=== PATIENT | female | born 2005 | race Caucasian/White ===

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

== ENCOUNTER 2025-03-23 14:32 | Inpatient (IN) | payer BC, SELFPAY ==
--- OUTSIDE RECORDS SUMMARY | 2025-03-23 13:40 | XMS_ITS | Encounter Summary ---
Author Organization [facility] Address [address] [place] [address] Care Team Providers Care Tobacco Buyer Name Role Phone Nelia Albarran Primary Care Provider Reason for Visit * Reason Comments Follow Up Medication & mental health check Encounter Details Date Type Department Care Team ([facility] st Contact Info) Description 03/23/2025 1:40 PM CDT Office Visit [facility] [place] [address] [place] [address] Crenshawnovember, FISH BONING MACHINE FEEDER [address] [place] [phone] Suicidal ideation (Primary Dx) Social History Tobacco Use Types Packs/Day Years Used Date Smoking Tobacco: Never Passive Smoke Exposure: Never Smokeless Tobacco: Never Tobacco Cessation:Counseling Given: No Alcohol Use Standard Drinks/Week Comments No 0 (1 standard drink = 0.6 oz pur e alcohol) Comments Unknown Sex and Gender Information Value Date Recorded Sex Assigned at Not on file Legal Sex Female 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 Gender Identity Not on file Sexual Orientation Not on file documented as of this encounter Last Filed Vital Signs Vital Sign Reading Time Taken Comments Blood Pressure 122/70 03/23/2025 1:27 PM CDT Pulse 77 03/23/2025 1:27 PM CDT Temperature 36.5 C (97.7 F) 03/23/2025 1:27 PM CDT Respiratory Rate 18 03/23/2025 1:27 PM CDT Oxygen Saturation 97% 03/23/2025 1:27 PM CDT Inhaled Oxygen Concentration - - Weight 103.9 kg (229 lb) 03/23/2025 1:27 PM CDT Height 160 cm (5' 3 ) 03/23/2025 1:27 PM CDT Body Mass Index 40.57 03/23/2025 1:27 PM CDT documented in this encounter Progress Notes * Flower, November, FISH BONING MACHINE FEEDER - 03/23/2025 1:29 PM CDT Depression Screen Positive: PHQ-2 score >= 3 or PHQ-9 score >= 9 PHQ-2 Total: 6 (03/23/2025 1:29 PM) DEPRESSION PLAN OF CARE Her depression screen was positive. Her antidepressant medication was reviewed Chief Complaint Patient presents with Follow Up Medication & mental health check History of Present Illness The patient is a 19-year-old female who presents to the clinic for follow-up. She reports that her current medication, Prozac, has not been effective in managing her symptoms. She expresses feelings of hopelessness and a lack of motivation to seek help. She admits to having persistent thoughts of self-harm, which have been ongoing for approximately 1.5 months. She has contemplated two different methods of suicide. 10 point review of systems is otherwise negative except as mentioned above. Past Medical History: Diagnosis Date Asthma HTN (hypertension) Current Outpatient Medications Medication Instructions albuterol sulfate 90 mcg/Actuation inhaler 2 puffs every 6 hours as needed for SOB or wheezing. Use2 puffs before PE or exercise FLUoxetine (PROZAC) 20 mg, Oral, DAILY fluticasone propionate (FLONASE) 50 mcg/spray Chambers, Suspension nasal inhaler 2 Sprays, Both Nostrils, DAILY ipratropium-albuteroL (DUONEB) 0.5 mg-3 mg(2.5 mg base)/3 mL Solution for Nebulization 3 mL, Inhalation, EVERY 6 HOURS PRN RESPIRATORY nebulizer Length of need 99 months Nebulizer with compressor, Kit: Disposable Nebulizer Kit, 2 per month, filters , areosol mask: No. Name of Medication Duoneb Past Surgical History: Procedure Laterality Date MT COLONOSCOPY FLX DX W/COLLJ SPEC WHEN PFRMD N/A 10/02/2019 COLONOSCOPY performed by Josh Vieyra MD at [facility] MT UPPER GI ENDOSCOPY,TUMOR ABLATN N/A 10/02/2019 ESOPHAGOGASTRODUODENOSCOPY PEDIATRIC performed by Josh Vieyra MD at [facility] END[facility] PT DENIES RELEVANT SURGICAL HISTORY Past social, family, and medical history reviewed. BP 122/70 Pulse 77 Temp 97.7 ??F (36.5 ??C) Resp 18 Ht 5' 3 (1.6 m) Wt 103.9 kg (229 lb) SpO2 97% BMI 40.57 kg/m?? Physical Exam Physical Exam Constitutional: Appearance: Normal appearance. HENT: Head: Normocephalic. Right Ear: External ear normal. Left Ear: External ear normal. Eyes: Conjunctiva/sclera: Conjunctivae normal. Cardiovascular: Rate and Rhythm: Normal rate and regular rhythm. Pulses: Normal pulses. Heart sounds: Normal heart sounds. Pulmonary: Effort: Pulmonary effort is normal. Breath sounds: Normal breath sounds. Abdominal: General: Bowel sounds are normal. Palpations: Abdomen is soft. Musculoskeletal: General: Normal range of motion. Cervical back: Neck supple. Skin: General: Skin is warm. Neurological: General: No focal deficit present. Mental Status: She is alert. Psychiatric: Mood and Affect: Mood is depressed. Affect is tearful. Behavior: Behavior normal. Assessment & Plan 1. Suicidal ideation. - Persistent thoughts of self-harm reported, with consideration of using a knife or pills. - Symptoms have worsened over the last month and a half, with daily struggles. - Inpatient psychiatric stay recommended due to severity and presence of an active plan. - EMS transport to ER arranged for further evaluation and potential admission to neuropsych unit [facility]. AGUSTIN Helton The author of this note, patient (or authorized exhibit display representative), and all other persons present consent to the audio recording of this visit for charting documentation purposes. This note was automatically generated, edited by a Quality Hoist Cylinder Loader, and finalized by RENALDO Helton. documented in this encounter Plan of Treatment Not on file documented as of this encounter Visit Diagnoses Diagnosis Suicidal ideation- Primary documented in this encounter Additional Health Concerns Assessment Noted Time PHQ-9 Depression Total Score: 6 03/23/20 25 1:29 PM CDT documented as of this encounter Care Teams Tobacco Buyer Relationship Specialty Start Date End Date Nelia Albarran DO [address] [phone] PCP - General Family Practice 05/06/19 documented as of this encounter
[2025-03-23 14:37] VITALS: BP 135/88; PULSE 69; RESP 16; TEMP 36.7; O2SAT 100; BMI 38.9
--- NOTE | 2025-03-23 14:37 | ECG_ITS ---
[facility] Test Date: 2025-03-23 Pat Name: Hansa Steen Department: Room: Gender: Female Brusher: : 2005 Requested By: Sandeep Go Order Number: [id number] Beth MD: Zackary Lobato M.D. Measurements Intervals [place] Rate: 53 P: 45 DE: 155 QRS: 37 QRSD: 76 T: 30 QT: 396 QTc: 375 Interpretive Statements SINUS BRADYCARDIA WITH SINUS ARRHYTHMIA No previous ECG available for comparison Electronically Signed On 03-26-2025 10:27:55 CDT by Zackary Lobato M.D. [email or web address]
--- NOTE | 2025-03-23 14:39 | W.ED.PSYCHS ---
HPI - Psych General: Chief Complaint: Psychiatric Symptoms Stated Complaint: SI Time Seen by Provider: 03/23/25 14:32 Source: patient and EMS Mode of arrival: EMS Limitations: no limitations History of Present Illness: 19-year-old female presents for suicidal ideation states she has chronic depression but is gotten much more depressed over the last weeks she states she is actively suicidal with a plan of overdosing on pills no previous psych admission she is on Prozac. Associated symptoms: Reports depression and suicidal ideation Related Data Home Medications ?Medication ?Instructions ?Recorded ?Confirmed fluoxetine 20 mg capsule 20 mg PO DAILY 03/23/25 03/23/25 Allergies Allergy/AdvReac Type Severity Reaction Status Date / Time No Known Allergies Allergy Verified 09/14/19 21:08 Review of Systems Const: Denies: fever(s), chills, body aches or change in appetite ENMT: Denies: throat pain or dental pain Card: Denies: chest pain Resp: Denies: dyspnea GI: Denies: abdominal pain, nausea, vomiting or diarrhea : Denies: dysuria Musc: Denies: neck pain or back pain Skin/Breast: Denies: rash Neuro: Denies: headache(s) Psych: Reports: depression and suicidal ideation Physical Exam Const: COMMON NORMALS: no acute distress, patient oriented x3 and healthy appearing HENMT: COMMON NORMALS: normocephalic and atraumatic HEAD & SCALP: normocephalic and atraumatic Eye: COMMON NORMALS: conjunctivae normal CONJUNCTIVA: Yes conjunctivae normal Neck/C-Spine: COMMON NORMALS: full ROM and supple Chest: COMMONS NORMALS: normal inspection of the chest Resp: COMMON NORMALS: normal respiratory effort, No retractions, No use of accessory muscles and clear to auscultation bilaterally AUSCULTATION: clear to auscultation bilaterally Cardio: COMMON NORMALS: regular rate, regular rhythm and No murmurs present (Cardio) RATE: regular rate RHYTHM: regular rhythm Extremity: COMMON NORMALS: normal to inspection and full ROM Neuro: COMMON NORMALS: patient oriented x3, moves all extremities and no focal motor deficits Psych: COMMON NORMALS: mental status grossly normal, Normal thought process present and cooperative MOOD & AFFECT: Yes depressed mood THOUGHT PROCESS: Normal thought process present THOUGHT CONTENT: Yes Suicidality present Skin: COMMON NORMALS: no rashes or lesions noted and no wounds GENERAL SKIN EXAM: no rashes or lesions noted Course Vital Signs: Vital signs: Vital Signs Temperature 98.1 F 03/23/25 14:37 Pulse Rate 54 L 03/23/25 16:56 Respiratory Rate 16 03/23/25 14:37 Blood Pressure 132/76 03/23/25 16:56 Pulse Oximetry 99 03/23/25 16:56 Oxygen Delivery Me thod Room Air 03/23/25 16:56 MDM - Psych Medical Decision Making Patient presents for suicidal ideations she has been medically cleared spoke to psychiatrist will admit Medical Records I reviewed the patient's medical records. Lab Data I reviewed the patient's lab results. 03/23/25 14:46 03/23/25 14:46 Laboratory Results WBC 5.21 10^3/uL (4.5-13.0) 03/23/25 14:46 RBC 4.42 10^6/uL (3.85-5.65) 03/23/25 14:46 Hgb 13.80 g/dL (12.4-14.8) 03/23/25 14:46 Hct 40.4 % (36-47) 03/23/25 14:46 MCV 91.4 fl (85-98) 03/23/25 14:46 MCH 31.2 pg (27-33) 03/23/25 14:46 MCHC 34.2 g/dL (30-55) 03/23/25 14:46 RDW 11.9 % (12.1-15.1) L 03/23/25 14:46 Plt Count 239 10^3/cmm (157-399) 03/23/25 14:46 MPV 10.8 fL (7.4-10.4) H 03/23/25 14:46 Neut % (Auto) 63.9 % 03/23/25 14:46 Lymph % (Auto) 26.7 % 03/23/25 14:46 [place] % (Auto) 6.9 % 03/23/25 14:46 Eos % (Auto) 1.5 % 03/23/25 14:46 Baso % (Auto) 0.6 % 03/23/25 14:46 Neut # (Auto) 3.33 10^3/uL (1.8-8.0) 03/23/25 14:46 Lymph # (Auto) 1.4 10^3/uL (1.5-6.5) L 03/23/25 14:46 [place]oun # (Auto) 0.4 10^3/uL (0.2-0.9) 03/23/25 14:46 Eos # (Auto) 0.1 10^3/uL (0.0-0.8) 03/23/25 14:46 Baso # (Auto) 0.0 10^3/uL (0.0-0.1) 03/23/25 14:46 Nucleated RBC % (auto) 0 % 03/23/25 14:46 Nucleated RBCs # 0.0 /100WBC 03/23/25 14:46 Sodium 138 mmol/L (136-145) 03/23/25 14:46 Potassium 4.1 mmol/L (3.5-5.1) 03/23/25 14:46 Chloride 103 mmol/L (98-107) 03/23/25 14:46 Carbon Dioxide 25 mmol/L (22-29) 03/23/25 14:46 Anion Gap 14.1 (5-19) 03/23/25 14:46 BUN 9 mg/dL (6-20) 03/23/25 14:46 Creatinine 0.7 mg/dL (0.5-0.9) 03/23/25 14:46 GFR Calculation 107.8 mL/min (90-130) 03/23/25 14:46 Glucose 103 mg/dL (65-115) 03/23/25 14:46 Calculated Osmolality 285 mOsm/kg (285-295) 03/23/25 14:46 Calcium 9.3 mg/dL (8.5-10.5) 03/23/25 14:46 Total Bilirubin 0.6 mg/dL (0.15-1.2) 03/23/25 14:46 AST 10 U/L (0-32) 03/23/25 14:46 ALT 11 U/L (0-33) 03/23/25 14:46 Alkaline Phosphatase 60 U/L (35-105) 03/23/25 14:46 Total Protein 7.2 g/dL (6.6-8.7) 03/23/25 14:46 Albumin 4.4 g/dL (3.5-5.2) 03/23/25 14:46 Globulin 2.8 g/dL (1.3-4.6) 03/23/25 14:46 HCG, Qual Negative (Negative) 03/23/25 16:06 Salicylates < 0.3 mg/dL (3-10) L 03/23/25 14:46 Urine Opiates Screen Negative ng/mL (Negative) 03/23/25 16:06 Acetaminophen < 5.0 ug/mL (10-30) L 03/23/25 14:46 Ur Barbiturates Screen Negative ng/mL (Negative) 03/23/25 16:06 Ur Phencyclidine Scrn Negative ng/mL (Negative) 03/23/25 16:06 Ur Amphetamines Screen Negative ng/mL (Negative) 03/23/25 16:06 U Benzodiazepines Scrn Negative ng/mL (Negative) 03/23/25 16:06 Urine Cocaine Screen Negative ng/mL (Negative) 03/23/25 16:06 U Marijuana (THC) Screen Positive ng/mL (Negative) H 03/23/25 16:06 Ethyl Alcohol < 10 mg/dL (0-10) 03/23/25 14:46 Influenza A (PCR) Negative (Negative) 03/23/25 15:18 Influenza Type B (PCR) Negative (Negative) 03/23/25 15:18 RSV (PCR) Negative (Negative) 03/23/25 15:18 SARS-CoV-2 (PCR) Negative (Negative) 03/23/25 15:18 No radiology studies performed this visit EKG Data EKG 1: I personally reviewed and interpreted this EKG as follows: EKG interpretation date: 03/23/25 EKG interpretation time: 15:15 Interpretation: sinus norma hr [address] elevation qrs 76 qtc 380 Discharge Plan Discharge Patient Disposition: Admitted As Inpatient Clinical Impression: Suicidal ideation Condition: Stable Coding Level of Care Code ED Medical Insurance Coding Specialist for Dinora Car
--- OUTSIDE RECORDS SUMMARY | 2025-03-23 14:39 | XMS_ITS | Encounter Summary ---
Author Organization [facility] Address [address] [place] [address] Care Team Providers Care Public Health Program Manager Name Role Phone Nelia Albarran DO Primary Care Provider [phone] Encounter Details Date Type Department Care Team (Late st Contact Info) Description 09/08/2019 Ancillary Orders [facility] Medicine [place] [address] [place] [phone] Hailey Castro, [facility] [address] [facility] [address] [place] [phone] Social History Tobacco Use Types Packs/Day Years Used Date Smoking Tobacco: Never Smokeless Tobacco: Never Alcohol Use Standard Drinks/Week Comments No 0 (1 standard drink = 0.6 oz pur e alcohol) Comments No Sex and Gender Information Value Date Recorded Sex Assigned at Not on file 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 Gender Identity Not on file Sexual Orientation Not on file documented as of this encounter Plan of Treatment Not on file documented as of this encounter Visit Diagnoses Not on filedocumented in this encounter Additional Health Concerns Infection Onset Date Last Indicated Resolved Time R/O COVID-19 02/11/2020 02/11/2020 02/13/2020 2:15 AM CDT R/O COVID-19 03/22/2020 03/22/2020 03/24/2020 2:15 AM CDT R/O COVID-19 12/07/2020 12/07/2020 12/14/2020 8:08 PM CDT documented as of this encounter Care Teams Public Health Program Manager Relationship Specialty Start Date End Date Nelia Albarran DO [address] [place] [phone] PCP - General Family Practice 05/06/19 documented as of this encounter
--- OUTSIDE RECORDS SUMMARY | 2025-03-23 14:39 | XMS_ITS | Encounter Summary ---
Author Organization [facility] Address [address] [place] [address] Care Team Providers Care Department Operations Manager Name Role Phone Nelia Albarran DO Primary Care Provider [phone]- [phone] Reason for Referral * Radiology Services (Routine) - Closed Specialty Diagnoses / Procedures Referred By Conttruman t Referred To Contact Radiology Diagnoses RUQ pain Abdominal cramping Morbid obesity with body mass index of 40.0-49.9 (CMS/HCC) Acute pain of right shoulder Procedures NM HEPATOBILIARY SCAN NM HEPATOBIL W PHARM INTERV Hailey Castro FNP Phone: tel: fax: [facility] Nuclear Medicine [address] [place] [phone] Phone: tel: fax: Referral ID Status Reason Start Date Expiration Date V isits Requested Visits Authorized [id number] Closed [facility] TO SCHEDULE (SGF) 08/11/2019 09/25/2019 1 1 CAR PAINTER/SANDBLASTER Encounter Details Date Type Department Care Team (Late st Contact Info) Description 09/08/2019 Ancillary Orders [facility] Family [facility] [address] [place] [phone] Hailey Castro FNP [address] [phone] RUQ pain; Abdominal cramping; Morbid obesity with body mass index of 40.0-49.9 (CMS/HCC); Acute pain of right shoulder Social History Tobacco Use Types Packs/Day Years Used Date Smoking Tobacco: Never Smokeless Tobacco: Never Alcohol Use Standard Drinks/Week Comments No 0 (1 standard drink = 0.6 oz pur e alcohol) Comments No Sex and Gender Information Value Date Recorded Sex Assigned at Not on file Legal Sex Female 3:53 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 Normal exam without evidence of acute or chronic cholecystitis. This laboratory has been accredited by the Intersocietal Commission for the Accreditation of Nuclear Medicine Laboratories (ICANL). [id number] Narrative 09/08/2019 9:58 PM RAIL CAR PAINTER/SANDBLASTER Hepatobiliary Imaging With Ensure Plus Stimulation and Quantitative Analysis: Date/Time of Exam: 09/08/2019 3:18 PM Reason For Exam: Abd pain, RUQ Diagnosis: RUQ pain; Abdominal cramping; Morbid obesity with body mass index of 40.0-49.9; Acute pain of right shoulder BMI: Not available. Radiopharmaceutical: Tc-99m (technetium-99m) mebrofenin Dose: 3.5 mCi IV Additional Medications: Ensure Plus Dose: 8 ounces Following the intravenous administration of the above radiopharmaceutical, the liver, hepatobiliary tree, and abdomen were sequentially imaged through 60 minutes post tracer administration. Ensure Plus, 8 ounces, was then administered orally and images were obtained for an additional 60 minutes. The overall quality of this study appears good. COMPARISON:None FINDINGS: The initial tracer extraction from the blood pool by the liver appears prompt. The liver is overall normal in size with uniform tracer distribution throughout both lobes in the anterior projection. Visualization of the biliary tree, common bile duct activity and bowel activity by 30 minutes. Review of dynamic imaging demonstrates no acute findings. Tracer washout from the liver appears normal. At this time, the patient was administered 8 ounces of Ensure Plus. The gallbladder was then visualized for an additional 60 minutes. Quantitatively, 95% (normal > 33%) of the contents of the gallbladder was maximally ejected with the dose of Ensure Plus. Procedure Note Slick Cm MD - 09/08/2019 Hepatobiliary Imaging With Ensure Plus Stimulation and Quantitative Analysis: Date/Time of Exam: 09/08/2019 3:18 PM Reason For Exam: Abd pain, RUQ Diagnosis: RUQ pain; Abdominal cramping; Morbid obesity with body mass index of 40.0-49.9; Acute pain of right shoulder BMI: Not available. Radiopharmaceutical: Tc-99m (technetium-99m) mebrofenin Dose: 3.5 mCi IV Additional Medications: Ensure Plus Dose: 8 ounces Following the intravenous administration of the above radiopharmaceutical, the liver, hepatobiliary tree, and abdomen were sequentially imaged through 60 minutes post tracer administration. Ensure Plus, 8 ounces, was then administered orally and images were obtained for an additional 60 minutes. The overall quality of this study appears good. COMPARISON:None FINDINGS: The initial tracer extraction from the blood pool by the liver appears prompt. The liver is overall normal in size with uniform tracer distribution throughout both lobes in the anterior projection. Visualization of the biliary tree, common bile duct activity and bowel activity by 30 minutes. Review of dynamic imaging demonstrates no acute findings. Tracer washout from the liver appears normal. At this time, the patient was administered 8 ounces of Ensure Plus. The gallbladder was then visualized for an additional 60 minutes. Quantitatively, 95% (normal > 33%) of the contents of the gallbladder was maximally ejected with the dose of Ensure Plus. IMPRESSION: 1. Normal exam without evidence of acute or chronic cholecystitis. This laboratory has been accredited by the Intersocietal Commission for the Accreditation of Nuclear Medicine Laboratories (ICANL). [id number] Hailey Castro [facility] NM ORDERABLES Final Re sult documented in this encounter Visit Diagnoses Diagnosis RUQ pain Abdominal pain, right upper quadrant Abdominal cramping Abdominal pain, unspecified site Morbid obesity with body mass index of 40.0-49.9 (CMS/HCC) Acute pain of right shoulder RUQ pain Abdominal pain, right upper quadrant Abdominal cramping Abdominal pain, unspecified site Morbid obesity with body mass index of 40.0-49.9 (CMS/HCC) Acute pain of right shoulder documented in this encounter Additional Health Concerns Infection Onset Date Last Indicated Resolved Time R/O COVID-19 02/11/2020 02/11/2020 02/13/2020 2:15 AM CDT R/O COVID-19 03/22/2020 03/22/2020 03/24/2020 2:15 AM CDT R/O COVID-19 12/07/2020 12/07/2020 12/14/2020 8:08 PM CDT documented as of this encounter Care Teams Department Operations Manager Relationship Specialty Start Date End Date Nelia Albarran DO [address] [place] [phone] PCP - General Family Practice 05/06/19 documented as of this encounter
--- OUTSIDE RECORDS SUMMARY | 2025-03-23 14:39 | XMS_ITS | Clinical Summary ---
Author Organization [facility] Address [address] [place] [address] Care Team Providers Care Section Leader Name Role Phone Nelia Albarran Primary Care Provider Allergies No known active allergies Medications ipratropium-albu teroL (DUONEB) 0.5 mg-3 mg(2.5 mg base)/3 mL Solution for NebulizationIndi cations:COVID-19 virus detected Take 3 mL by inhalation every 6 hours as needed for Shortness of Breath. 75 mL 1 1 Active Additional Information Patient not taking.Reported on 03/23/2025 nebulizerIndicat ions:COVID-19 virus detected Length of need 99 months Nebulizer with compressor, Kit: Disposable Nebulizer Kit, 2 per month, filters , areosol mask: No. Name of Medication Duoneb 1 Each 1 Active Additional Information Patient not taking.Reported on 02/24/2025 albuterol sulfate 90 mcg/Actuation inhalerIndicatio ns:Mild intermittent asthma without complication 2 puffs every 6 hours as needed for SOB or wheezing. Use 2 puffs before PE or exercise 6.7 Gram 4 2 Active Additional Information Patient not taking.Reported on 03/23/2025 fluticasone propionate (FLONASE) 50 mcg/spray [place], Suspension nasal inhalerIndicatio ns:Nasal congestion Administer 2 Sprays in each nostril daily. 16 Gram 2 Active Additional Information Patient not taking.Reported on 03/23/2025 FLUoxetine (PROzac) 20 mg capsuleIndicatio ns:Obsessive-com pulsive disorder, unspecified type Take 1 Capsule (20 mg) by mouth daily. 30 Capsule 2 Active Active Problems Problem Noted Date Diagnosed Date Mild intermittent asthma without complication Encounters Date Type Department Care Team Description 03/23/2025 1:40 PM CDT Office Visit [facility] [address] [place] [address] November, CATALYST OPERATOR GASOLINE Suicidal ideation (Primary Dx) 03/12/2025 External Device Data STL ABSTRACTION Provider, Abstract 03/11/2025 External Device Data STL ABSTRACTION Provider, Abstract 03/11/2025 External Device Data STL ABSTRACTION Provider, Abstract 03/03/2025 External Device Data STL ABSTRACTION Provider, Abstract 03/03/2025 External Device Data STL ABSTRACTION Provider, Abstract 03/03/2025 External Device Data STL ABSTRACTION Provider, Abstract 03/01/2025 Results Follow-Up [facility] [address] [place] [address] November, CATALYST OPERATOR GASOLINE CBC WITH DIFFERENTIAL, COMPREHENSIVE METABOLIC PANEL, LIPID PANEL, TSH 02/24/2025 12:00 PM CDT Office Visit [facility] [address] [place] [address] November, CATALYST OPERATOR GASOLINE Obsessive-compulsive disorder, unspecified type (Primary Dx); Binge eating disorder, mild; Morbid obesity with body mass index of 40.0-49.9 ([facility]/HCC) from Last 3 Months Immunizations Immunization Administration Dates Next Due (MENQUADFI)(2 YRS UP) MENING OCOCCAL POLYSACCHARIDE VACCINE A,C,Y,W-135, TT CONJUGATE (PF) 10 MCG/0.5 ML IM SOLUTION 04/14/2022 Family History Medical History Relation Name Comments Healthy Brother No Known Problems Father Cancer Maternal Grandfather Diabetes Maternal Grandfather Hypertension Maternal Grandfather Cancer Maternal Grandmother Diabetes Maternal Grandmother Hypertension Maternal Grandmother Hypertension Mother Cancer Paternal Grandfather Diabetes Paternal Grandfather Hypertension Paternal Grandfather Cancer Paternal Grandmother Diabetes Paternal Grandmother Hypertension Paternal Grandmother Healthy Sister Relation Name Status Comments Brother Alive Father Alive Maternal Grandfather Alive Maternal Grandmother Alive Mother Alive Paternal Grandfather Alive Paternal Grandmother Alive Sister Alive Social History Tobacco Use Types Packs/Day Years Used Date Smoking Tobacco: Never Passive Smoke Exposure: Never Smokeless Tobacco: Never Tobacco Cessation:Counseling Given: No Alcohol Use Standard Drinks/Week Comments No 0 (1 standard drink = 0.6 oz pur e alcohol) Comments Unknown Sex and Gender Information Value Date Recorded Sex Assigned at Not on file 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 Gender Identity Not on file Sexual Orientation Not on file Last Filed Vital Signs Vital Sign Reading [...] Mass Index 40.57 03/23/2025 1:27 PM CDT Plan of Treatment Health Maintenance Due Date Last Done Comments CHLAMYDIA SCREENING (ANNUAL) 11-24 YEARS 2016 DTAP/TDAP/TD VACCINES (5 - Tdap) 2016 07/05/2006, 2005, 2005, Additional history exists HPV VACCINES (1 - 3-dose series) 2020 Preventative Visit- Commercial 08/27/2024 04/14/2022 INFLUENZA VACCINE (#1) 2025 HEPATITIS B VACCINES Completed 2005, 2005, 2005 Procedures Procedure Name Priority Date/Time Associated Diagnosis Comments TSH Routine 02/24/2025 1:22 PM CDT Morbid obesity with body mass index of 40.0-49.9 (CMS/HCC) LIPID PANEL Routine 02/24/2025 1:22 PM CDT Morbid obesity with body mass index of 40.0-49.9 (CMS/HCC) COMPREHENSIVE METABOLIC PANEL Routine 02/24/2025 1:22 PM CDT Morbid obesity with body mass index of 40.0-49.9 (CMS/HCC) CBC WITH DIFFERENTIAL Routine 02/24/2025 1:22 PM CDT Morbid obesity with body mass index of 40.0-49.9 (CMS/HCC) from Last 3 Months Results * CBC WITH DIFFERENTIAL (02/24/2025 1:22 PM CDT) Pathologist [facility] WBC 5.3 3.8 - 10.8 Thousand/u L [facility] RBC 4.41 3.80 - 5.10 Million/uL [facility] HEMOGLOBIN 13.7 11.7 - 15.5 g/dL [facility] HEMATOCRIT 41.8 35.0 - 45.0 % [facility] MCV 94.8 80.0 - 100.0 fL [facility] MCH 31.1 27.0 - 33.0 pg [facility] MCHC 32.8 32.0 - 36.0 g/dL [facility] Comment: For adults, a slight decrease in the calculated MCHC value (in the range of 30 to 32 g/dL) is most likely not clinically significant; however, it should be interpreted with caution in correlation with other red cell parameters and the patient's clinical condition. RDW 11.3 11.0 - 15.0 % [facility] PLATELETS 248 140 - 400 Thousand/u L [facility] MPV 11.7 7.5 - 12.5 fL [facility] NEUTROPHIL ABSOLUTE 3,487 1,500 - 7,800 cells/uL [facility] LYMPHOCYTE ABSOLUTE 1,389 850 - 3,900 cells/uL [facility] MONOCYTE ABSOLUTE 302 200 - 950 cells/uL [facility] EOSINOPHIL ABSOLUTE 90 15 - 500 cells/uL [facility] BASOPHILS ABSOLUTE 32 0 - 200 cells/uL [facility] NEUTROPHIL 65.8 % [facility] LYMPHOCYTES 26.2 % [facility] MONOCYTE 5.7 % [facility] EOSINOPHILS 1.7 % [facility] BASOPHILS 0.6 % [facility] Comment: Test Performed at: [facility] [address] [place] [address] Eliazar Marie MD Blood 02/24/2025 1:22 PM CDT 02/24/2025 1:22 PM CDT November [facility] ORDERABLES Final Resu lt Performing Organization Address City/[facility] [address]/[facility] Co de Phone Number [facility] [phone] [facility] [address] [place] [phone] * TSH (02/24/2025 1:22 PM CDT) Pathologist [facility] TSH 1.74 mIU/L [facility] Comment: Reference Range 1-19 Years 0.50-4.30 Ranges First trimester 0.26-2.66 Second trimester 0.55-2.73 Third trimester 0.43-2.91 Test Performed at: [facility] [address] [place] [address] Eliazar Marie MD Blood 02/24/2025 1:22 PM CDT 02/24/2025 1:22 PM CDT November [facility] CHEMISTRY ORDERABLES Final Resul t Performing Organization Address [facility] [address]/[facility] Co de Phone Number [facility] [phone] [facility] [address] [place] [address] * (ABNORMAL) LIPID PANEL (02/24/2025 1:22 PM CDT) CHOLESTEROL 196(H) <170 mg/dL [facility] HDL 55 >45 mg/dL [facility] TRIGLYCERIDE 66 <90 mg/dL [facility] LDL CALCULATED 125(H) <110 mg/dL (calc) [facility] Comment: LDL-C is now calculated using the Guanako-Salcedo calculation, which is a validated novel method providing better accuracy than the Friedewald equation in the estimation of LDL-C. Guanako SS et al. PILAR. 2013;310(19): 2961-0374 (http://education.[employer]/faq/XCJ863) CHOL/HDL RATIO 3.6 <5.0 (calc) [facility] NON-HDL CHOLESTEROL 141(H) <120 mg/dL (calc) [facility] Comment: For patients with diabetes plus 1 major ASCVD risk factor, treating to a non-HDL-C goal of <100 mg/dL (LDL-C of <70 mg/dL) is considered a therapeutic option. Test Performed at: [facility] [address] [facility] [place] [address] Eliazar Marie MD Blood 02/24/2025 1:22 PM CDT 02/24/2025 1:22 PM CDT November CATALYST OPERATOR GASOLINE CHEMISTRY ORDERABLES Final Resul t [facility] [phone] [facility] [address] [facility] [place] [address] * COMPREHENSIVE METABOLIC PANEL (02/24/2025 1:22 PM CDT) GLUCOSE 87 65 - 99 mg/dL [facility] Comment: Fasting reference interval BUN 10 7 - 20 mg/dL [facility] CREATININE 0.81 0.50 - 0.96 mg/dL [facility] GFR 107 > OR = 60 mL/min/1. 73m2 [facility] BUN/CREAT RATIO SEE NOTE: 6 - 22 (calc) [facility] Comment: Not Reported: BUN and Creatinine are within reference range. SODIUM 136 135 - 146 mmol/L [facility] POTASSIUM 4.2 3.8 - 5.1 mmol/L [facility] CHLORIDE 104 98 - 110 mmol/L [facility] CO2 25 20 - 32 mmol/L [facility] CALCIUM 9.0 8.9 - 10.4 mg/dL [facility] TOTAL PROTEIN 7.5 6.3 - 8.2 g/dL [facility] ALBUMIN 4.9 3.6 - 5.1 g/dL [facility] GLOBULIN 2.6 2.0 - 3.8 g/dL (calc) [facility] ALBUMIN/GLOBULIN RATIO 1.9 1.0 - 2.5 (calc) [facility] BILIRUBIN TOTAL 0.7 0.2 - 1.1 mg/dL [facility] Comment: Results slightly decreased due to hemolysis. ALKALINE PHOSPHATASE 46 36 - 128 U/L [facility] AST 13 12 - 32 U/L [facility] ALT 11 5 - 32 U/L [facility] Comment: Test Performed at: [facility] [address] [place] [address] Eliazar Marie MD Blood 02/24/2025 1:22 PM CDT 02/24/2025 1:22 PM CDT November CATALYST OPERATOR GASOLINE CHEMISTRY ORDERABLES Final Resul t [facility] [phone] [facility] [address] [place] [address] from Last 3 Months Insurance [facility] PREFERRED [facility] BLUE PREFERRED [facility] MEDICAID Care Teams Section Leader Relationship Specialty Start Date End Date Nelia Albarran DO [address] [place] [address] PCP - General Family Practice 05/06/19
--- OUTSIDE RECORDS SUMMARY | 2025-03-23 14:39 | XMS_ITS | Clinical Summary ---
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 Use 2 puffs before PE or exercise 6.7 Gram 4 1 Active pantoprazole (Protonix) 20 mg Tablet, Delayed Release (E.C.)Indications:G astroesophageal reflux disease without esophagitis Take 1 Tablet (20 mg) by mouth daily. 30 Tablet 1 1 Active ondansetron (Zofran ODT) 4 mg Tablet, Rapid DissolveIndications :Viral gastroenteritis Take 1 Tablet (4 mg) by mouth every 8 hours as needed for Nausea/Emesi s. Dissolve tablet on top of tongue, then swallow with saliva. 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 Gender Identity Not on file Sexual Orientation Not on file Last Filed Vital Signs Vital Sign Reading Time Taken Comments Blood Pressure 128/82 12/07/2020 3:47 PM CDT Pulse 119 12/07/2020 3:47 PM CDT Temperature 37.1 C (98.8 F) 12/07/2020 3:47 PM CDT Respiratory Rate 17 09/21/2020 1:50 PM CREDIT ANALYSIS MANAGER Oxygen Saturation 99% 12/07/2020 3:47 PM CDT Inhaled Oxygen Concentration - - Weight 133.8 kg (295 lb) 12/07/2020 3:47 PM CDT Height 165.1 cm (5' 5 ) 12/07/2020 3:47 PM CDT Body Mass Index 49.09 12/07/2020 3:47 PM CDT Body Mass Index Percentile 99.99% 12/07/2020 3:4 7 PM CDT Growth Chart: CDC (Girls, 2- 20 Years) Plan of Treatment Health Maintenance Due Date Last Done Comments CHLAMYDIA SCREENING (ANNUAL) 11-24 YEARS 2016 HPV VACCINES (1 - 3-dose series) 2020 DTAP/TDAP/TD VACCINES (1 - Tdap) 2024 HEPATITIS B VACCINES (1 of 3 - 19+ 3-dose series) 03/28 Preventative Visit- Commercial 08/27/2024 04/14/2022 INFLUENZA VACCINE (#1) 2025 Insurance BLUE PREFERRED [facility] MEDICAID Care Teams Large Sheetfed Press Operator Relationship Specialty Start Date End Date Nelia Albarran DO [address] [place] [address] PCP - General Family Practice 05/06/19
[2025-03-23 14:57] LABS: Hematocrit 40.4 % (36-47); Hemoglobin 13.80 g/dL (12.4-14.8); Mean Corpuscular HGB Conc 34.2 g/dL (30-55); Mean Corpuscular Hemoglobin 31.2 pg (27-33); Mean Corpuscular Volume 91.4 fl (85-98); Nucleated Red Blood Cells % 0 %; Platelet Count 239 10^3/cmm (157-399); Red Blood Count 4.42 10^6/uL (3.85-5.65); White Blood Count 5.21 10^3/uL (4.5-13.0)
[2025-03-23 15:15] LABS: Alanine Aminotransferase 11 U/L (0-33); Albumin Level 4.4 g/dL (3.5-5.2); Alkaline Phosphatase 60 U/L (35-105); Anion Gap 14.1 (5-19); Aspartate Amino Transferase 10 U/L (0-32); Blood Urea Nitrogen 9 mg/dL (6-20); Calcium 9.3 mg/dL (8.5-10.5); Carbon Dioxide 25 mmol/L (22-29); Chloride 103 mmol/L (98-107); Creatinine Clr Calc Pharmacy 145.6144; Globulin 2.8 g/dL (1.3-4.6); Glucose 103 mg/dL (65-115); Osmolality Calculated 285 mOsm/kg (285-295); Potassium 4.1 mmol/L (3.5-5.1); Sodium 138 mmol/L (136-145); Total Protein 7.2 g/dL (6.6-8.7)
[2025-03-23 15:18] LABS: Acetaminophen < 5.0 ug/mL (10-30); Alcohol Level < 10 mg/dL (0-10); Salicylate < 0.3 mg/dL (3-10)
[2025-03-23 16:00] LABS: Respiratory Syncytial Virus Ce NEGATIVE (Negative); SARS-CoV-2 PCR NEGATIVE (Negative)
--- NOTE | 2025-03-23 16:00 | PC.NURSE ---
96 hr rights reviewed with pt @[id number] with assistance of [facility] truant officer Gold Welsh. All education reviewed with pt at this time. Pt verbalized understanding to hold parameters. Pt copy of rights was left @bedside. Pt provided water, and declined wanting a snack. No further needs.
[2025-03-23 16:22] LABS: PCP Screen Urine Negative (Negative)
[2025-03-23 16:47] LABS: HCG Qualitative Urine. Negative (Negative)
[2025-03-23 16:56] VITALS: BP 132/76; PULSE 54; O2SAT 99
[2025-03-23 18:48] VITALS: BP 134/67; PULSE 54; O2SAT 99
[2025-03-23 19:00] VITALS: BP 134/90; PULSE 61; RESP 18; TEMP 37.1; O2SAT 90
[2025-03-23 20:08] VITALS: BP 134/90; PULSE 61; RESP 18; TEMP 37.1; O2SAT 90
[2025-03-24 06:00] VITALS: BP 129/72; PULSE 64; RESP 19; TEMP 37.1; O2SAT 98
--- NOTE | 2025-03-24 13:23 | W.PM.NPUH&PS ---
Providers/Chief Complaint Admitting Physician: Josué Jaquez MD Primary Care Provider: [facility] Chief Complaint: SI HPI NPU History of Present Illness Hansa Steen is a 19 year old female with no prior history of inpatient psychiatric hospitalization who presented to the emergency department with complaints about having suicidal ideation over the past few weeks with a plan to overdose on medications. Patient was admitted to the neuropsychiatric unit for further evaluation and treatment. She denies any drug or alcohol use. She reports that she has had previous episodes of depression. She reports that over the past 1 month she has been feeling more hopeless. She reports a decline in energy and reports having difficulties falling asleep and not feeling rested when awakening. She endorses anhedonia. She reports that she frequently worries a lot and has difficulties with concentration. She reports a recent loss of appetite. She had endorsed fleeting suicidal thoughts but no active plan until the last week. She states that she had been started on Prozac 20 mg daily by her primary care physician but began to feel more hopeless that the medication was not helping her with her mood. The patient denies any history of uli. She denies any clear history of psychosis although she reports at times she hears her name being called. The patient reports that she has frequent intrusive thoughts about . He describes having recurring thoughts as well about feeling unclean and states that she spends an excessive amount of time washing her hands in a very particular manner. She reports spending excessive time in the bathroom often washing her hand. She also reports engaging in rituals that involve her needing to count 5 or 6 [address] and states that she will not step on a crack. She reports that she has fears of something bad happening to her if she does not engage in these rituals in such a particular way. She reports having problems with spending excessive amounts of time engaged in these rituals for the past 2 years. The patient reports that she often needs to wash her hands exactly 5 times and states that if her rhythm is interrupted by another she will begin to wash her hands all over. The patient reports that she does have a strict adherence to engaging in these rituals and reports that it often is is distracting to others as she reports that she takes long breaks while working at [employer] and reports that her management is somewhat tired of her behavior. She denies any drug or alcohol use. She denies any history of binge eating or purging. She reports having problems with anxiety in specific places often feeling like she is being judged in certain places. She reports avoidance of these places at times out of fear of being judged. Patient had reported that she has had nausea from the Prozac and reports often feeling fatigued. Inpatient psychiatric history: None Outpatient psychiatric history: None, she reports having been treated for depression recently by her primary care physician. She has no prior history of psychotherapy. Substance abuse history: None reported although she had reported occasional marijuana use and was positive for marijuana on admission. Legal history: None Medical history: None Surgical history: None Allergies: Dairy products Medications: Prozac 20 mg daily Family psychiatric history: Patient's father had been diagnosed with obsessive-compulsive disorder and depression. Social history: Patient was born in [place] and raised by her biological mother. Her parents were when the patient was young. She has 1 older sister and 1 younger sister and 2 half brothers from her father side of the family. She had denied any history of sexual physical or emotional abuse. She reports having a relatively happy childhood. She reported no problems with learning growing up and graduated from [employer] school. She is currently working full-time at [employer] while living with a roommate of nearly a year. She has not been and has no children. Meds NPU Home Medications ?Medication ?Instructions ?Recorded ?Confirmed ?Last Taken ?Type fluoxetine 20 mg capsule 20 mg PO DAILY 03/23/25 03/23/25 Unknown History Allergies Allergy/AdvReac Type Severity Reaction Status Date / Time No Known Allergies Allergy Verified 09/14/19 21:08 Mental Status Exam MSE Comments: Patient is casually dressed overweight white female who was pleasant and cooperative on interview. Her gait was within normal limits. Her hygiene was fair. There was no evidence of any abnormal involuntary motor movements, tics, or tremors appreciated. Her speech was normal in regards to rate, rhythm, and prosody. Her mood was described as depressed. Her affect was constricted and mood-congruent. Her thought process was linear, logical, and goal-directed. Her thought content revealed suicidal ideation with a plan to overdose on her medications. She denied any homicidal ideation. She had endorsed having recurring obsessive thoughts of feeling that her hands were dirty. She did not engage in any active compulsions during the interview. There was no evidence of delusional thinking. She did not appear to be responding to internal stimuli. Her attention span was fair. Her insight was partial. Her judgment was poor. Her impulse control appeared poor. Her recent and remote memory were grossly intact. Vitals/I&O/Wt Last Vital Signs Temp 98.7 F 03/24/25 06:00 Pulse 64 03/24/25 06:00 Resp 19 H 03/24/25 06:00 BP 129/72 03/24/25 06:00 Pulse Ox 98 03/24/25 06:00 O2 Del Method Room Air 03/24/25 06:00 Weight last 48 hrs Weight 99.79 kg Data NPU 03/23/25 14:46 03/23/25 14:46 A&P Assessment and plan 1. MDD (major depressive disorder), recurrent severe, without psychosis: 2. OCD (obsessive compulsive disorder): 3. Suicidal ideation: Plan: 19-year-old female who presents with symptoms suggestive of major depressive disorder along with obsessive-compulsive disorder currently on Prozac and requesting a change in medications while endorsing suicidal ideation. #1.? Engage patient in individual milieu and group therapy. #2?? Recommend sober living treatment at the highest level of care to which the patient is willing to commit #3???D/C Prozac and start zoloft 25mg daily. #4?? TO-15 minute checks? #5?? Will attempt to gather collateral information PDMP PDMP Reviewed: Not Reviewed Involuntary Hold Information Hold Status: Legal Status: 96 Hour Hold Date/Time Hold Expires: 03/27/25 1432 Attestations NPU Medical Necessity Statement*: Inpatient hospitalization is medically necessary and deemed to be the clinically appropriate intervention at this time. Medications will be adjusted and initiated as indicated.? The patient will be hospitalized for at least 2 midnights.? The patient?s likely length of stay is 4-6 days Coding Level of Care Code Acute Code for Chg Fwd Diagnoses MDD (major depressive disorder), recurrent severe, without psychosis F33.2 OCD (obsessive compulsive disorder) F42.9 Suicidal ideation R45.851
[2025-03-24 14:00] VITALS: BP 125/66; PULSE 64; RESP 18; TEMP 37.1; O2SAT 98
[2025-03-24 22:00] VITALS: BP 116/76; PULSE 61; RESP 19; TEMP 37.1; O2SAT 95
[2025-03-25 06:00] VITALS: BP 129/85; PULSE 70; RESP 16; TEMP 36.6; O2SAT 98
--- NOTE | 2025-03-25 06:14 | PC.NURSE ---
pt meds discussion had with pt concerning her prozac. this nurse reviewed pt chart and informed pt of discontinuation of medication.
[2025-03-25 14:00] VITALS: BP 122/72; PULSE 63; RESP 16; TEMP 36.7; O2SAT 98
--- NOTE | 2025-03-25 14:19 | P.NPUPN_ITS ---
Subjective NPU 2 Subjective: 19-year-old female with history of major depressive disorder along with excessive compulsive disorder continuing to report struggles with managing her anxiety. She had described that her concerns about cleanliness and struggles with managing worries about contaminations had led her to have more problems with eating here in the hospital. She had reported that she had continued to spend excessive amounts of time in the bathroom often washing her hands exactly 5 times. She had reported that her ability to perform these rituals somehow helped her to prevent something bad from happening in the future. She had reported that she was no longer feeling as hopeless. She continued to report having struggles with maintaining her normal routine here. She had reported some difficulties falling asleep. She was able to attend groups. She did not endorse any side effects such as nausea. Nausea had been a significant side effect leading to her discontinuation of Prozac over the last month. She reports frequent intrusive images of of loved ones that were not associated with any particular real life events. Mental Status Exam 2 MSE Comments: Patient is casually dressed overweight white female who was pleasant and cooperative on interview. Her gait was within normal limits. Her hygiene was fair. There was no evidence of any abnormal involuntary motor movements, tics, or tremors appreciated. Her speech was normal in regards to rate, rhythm, and prosody. Her mood was described as depressed. Her affect was constricted and mood-congruent. Her thought process was linear, logical, and goal-directed. Her thought content revealed suicidal ideation with a plan to overdose on her medications. She denied any homicidal ideation. She had endorsed having recurring obsessive thoughts of feeling that her hands were dirty and fear of something bad occurring if she did not wash her hands. She did not engage in any active compulsions during the interview. There was no evidence of delusional thinking. She did not appear to be responding to internal stimuli. Her attention span was fair. Her insight was partial. Her judgment was poor. Her impulse control appeared poor. Her recent and remote memory were grossly intact. Vitals/I&O/Wt Last Vital Signs Temp 97.9 F 03/25/25 06:00 Pulse 70 03/25/25 06:00 Resp 16 03/25/25 06:00 BP 129/85 03/25/25 06:00 Pulse Ox 98 03/25/25 06:00 O2 Del Method Room Air 03/25/25 06:00 Weight last 48 hrs Weight 99.79 kg Data NPU 03/23/25 14:46 03/23/25 14:46 A&P Assessment and plan 1. MDD (major depressive disorder), recurrent severe, without psychosis: 2. OCD (obsessive compulsive disorder): 3. Suicidal ideation: Plan: 19-year-old female who presents with symptoms suggestive of major depressive disorder along with obsessive-compulsive disorder currently on Prozac and requesting a change in medications while endorsing suicidal ideation. #1.? Engage patient in individual milieu and group therapy. #2?? Recommend sober living treatment at the highest level of care to which the patient is willing to commit #3???Increase zoloft to 25mg bid. #4?? TO-15 minute checks? #5?? Will attempt to gather collateral information PDMP PDMP Reviewed: Not Reviewed Involuntary Hold Information 2 Hold Status: Legal Status: 96 Hour Hold Date/Time Hold Expires: 03/27/2025 1432 Attestations NPU 2 Medical Necessity Statement*: Inpatient hospitalization is medically necessary and deemed to be the clinically appropriate intervention at this time. Medications will be adjusted and initiated as indicated.? The patient?s likely length of stay is 4-6 days Coding Level of Care Code Acute Code for Chg Fwd Diagnoses MDD (major depressive disorder), recurrent severe, without psychosis F33.2 OCD (obsessive compulsive disorder) F42.9 Suicidal ideation R45.851
[2025-03-25 22:00] VITALS: BP 130/89; PULSE 90; RESP 19; O2SAT 99
[2025-03-26 06:00] VITALS: BP 127/84; PULSE 70; RESP 16; TEMP 36.6; O2SAT 98
[2025-03-26 13:15] VITALS: BP 122/69; PULSE 95; RESP 16; TEMP 36.9; O2SAT 97
--- NOTE | 2025-03-26 14:23 | P.NPUPN_ITS ---
Subjective NPU 2 Subjective: 19-year-old female with history of major depressive disorder along with obsessive compulsive disorder continuing to report struggles with managing her anxiety. The patient had minimized any suicidal thoughts. She reports continued obsessive thinking and continued compulsive handwashing. She had continued to report interest in psychotherapy and reported no nausea associated with the Zoloft increase. She reports that she has been feeling better. She had stated that her sleep was adequate. She was able to attend groups and was redirectable on the milieu. She had reported having some difficulties with oral intake as she had stated that her concerns over germs and fear of contamination was making it harder to eat food here. Mental Status Exam 2 MSE Comments: Patient is casually dressed overweight white female who was pleasant and cooperative on interview. Her gait was within normal limits. Her hygiene was fair. There was no evidence of any abnormal involuntary motor movements, tics, or tremors appreciated. Her speech was normal in regards to rate, rhythm, and prosody. Her mood was described as better. Her affect was less restricted today. Her thought process was linear, logical, and goal-directed. Her thought content revealed no suicidal ideation. She denied any homicidal ideation. She had endorsed having recurring obsessive thoughts of being contaminated with urges reported to wash hands. She did not engage in any active compulsions during the interview. There was no evidence of delusional thinking. She did not appear to be responding to internal stimuli. Her attention span was fair. Her insight was partial. Her judgment was poor. Her impulse control appeared poor. Her recent and remote memory were grossly intact. Vitals/I&O/Wt Last Vital Signs Temp 98.4 F 03/26/25 13:15 Pulse 95 03/26/25 13:15 Resp 16 03/26/25 13:15 BP 122/69 03/26/25 13:15 Pulse Ox 97 03/26/25 13:15 O2 Del Method Room Air 03/26/25 13:15 Data NPU 03/23/25 14:46 03/23/25 14:46 A&P Assessment and plan 1. MDD (major depressive disorder), recurrent severe, without psychosis: 2. OCD (obsessive compulsive disorder): 3. Suicidal ideation: Plan: 19-year-old female who presents with symptoms suggestive of major depressive disorder along with obsessive-compulsive disorder currently on Prozac and requesting a change in medications while endorsing suicidal ideation. #1.? Engage patient in individual milieu and group therapy. #2?? Recommend sober living treatment at the highest level of care to which the patient is willing to commit #3???continue zoloft to 25mg bid with plan to titrate upward over next month. #4?? TO-15 minute checks? #5?? Will attempt to gather collateral information PDMP PDMP Reviewed: Not Reviewed Involuntary Hold Information 2 Hold Status: Legal Status: 96 Hour Hold Date/Time Hold Expires: 03/27/2025 1432 Attestations NPU 2 Medical Necessity Statement*: Inpatient hospitalization is medically necessary and deemed to be the clinically appropriate intervention at this time. Medications will be adjusted and initiated as indicated.? The patient?s likely length of stay is 1-2 days Coding Level of Care Code Acute Code for Chg Fwd Diagnoses MDD (major depressive disorder), recurrent severe, without psychosis F33.2 OCD (obsessive compulsive disorder) F42.9 Suicidal ideation R45.858
[2025-03-26 19:59] VITALS: BP 115/60; PULSE 71; RESP 18; TEMP 36.8; O2SAT 96
[2025-03-27 06:00] VITALS: BP 110/70; PULSE 114; RESP 17; TEMP 36.6; O2SAT 100
--- NOTE | 2025-03-27 12:42 | P.NPUDS_ITS ---
Diagnoses at Discharge Discharge Diagnosis 1. MDD (major depressive disorder), recurrent severe, without psychosis: 2. OCD (obsessive compulsive disorder): 3. Suicidal ideation: Reason for Visit Reason for Visit: SI Brief History: History of Present Illness Hansa Steen is a 19 year old female with no prior history of inpatient psychiatric hospitalization who presented to the emergency department with complaints about having suicidal ideation over the past few weeks with a plan to overdose on medications. Patient was admitted to the neuropsychiatric unit for further evaluation and treatment. She denies any drug or alcohol use. She reports that she has had previous episodes of depression. She reports that over the past 1 month she has been feeling more hopeless. She reports a decline in energy and reports having difficulties falling asleep and not feeling rested when awakening. She endorses anhedonia. She reports that she frequently worries a lot and has difficulties with concentration. She reports a recent loss of appetite. She had endorsed fleeting suicidal thoughts but no active plan until the last week. She states that she had been started on Prozac 20 mg daily by her primary care physician but began to feel more hopeless that the medication was not helping her with her mood. The patient denies any history of lui. She denies any clear history of psychosis although she reports at times she hears her name being called. The patient reports that she has frequent intrusive thoughts about . He describes having recurring thoughts as well about feeling unclean and states that she spends an excessive amount of time washing her hands in a very particular manner. She reports spending excessive time in the bathroom often washing her hand. She also reports engaging in rituals that involve her needing to count 5 or 6 [address] and states that she will not step on a crack. She reports that she has fears of something bad happening to her if she does not engage in these rituals in such a particular way. She reports having problems with spending excessive amounts of time engaged in these rituals for the past 2 years. The patient reports that she often needs to wash her hands exactly 5 times and states that if her rhythm is interrupted by another she will begin to wash her hands all over. The patient reports that she does have a strict adherence to engaging in these rituals and reports that it often is is distracting to others as she reports that she takes long breaks while working at [employer] and reports that her management is somewhat tired of her behavior. She denies any drug or alcohol use. She denies any history of binge eating or purging. She reports having problems with anxiety in specific places often feeling like she is being judged in certain places. She reports avoidance of these places at times out of fear of being judged. Patient had reported that she has had nausea from the Prozac and reports often feeling fatigued. Inpatient psychiatric history: None Outpatient psychiatric history: None, she reports having been treated for depression recently by her primary care physician. She has no prior history of psychotherapy. Substance abuse history: None reported although she had reported occasional marijuana use and was positive for marijuana on admission. Legal history: None Medical history: None Surgical history: None Allergies: Dairy products Medications: Prozac 20 mg daily Family psychiatric history: Patient's father had been diagnosed with obsessive- compulsive disorder and depression. Social history: Patient was born in [place] and raised by her biological mother. Her parents were when the patient was young. She has 1 older sister and 1 younger sister and 2 half brothers from her father side of the family. She had denied any history of sexual physical or emotional abuse. She reports having a relatively happy childhood. She reported no problems with learning growing up and graduated from [employer] school. She is currently working full-time at [employer] while living with a roommate of nearly a year. She has not been and has no children. Hospital Course Hospital Course The patient had revealed significant symptoms suggestive of obsessive-compulsive disorder along with major depressive disorder. She was started on Zoloft 25 mg and titrated up to a dose of 50 mg prior to discharge with no side effects. Patient was informed of the likely plan to continue to titrate Zoloft upwards at higher doses in order to optimize treatment for obsessive-compulsive disorder particularly. Information was also provided regarding exposure and response prevention as a form of treatment for her obsessive-compulsive disorder which had been a problem reportedly for several years. During the hospitalization, the patient had routine laboratory studies which were within normal limits except for a few outliers.? Additionally, there was a general medical evaluation which was also within normal limits and revealed no new acute processes.? At the time of discharge, lethality was denied and psychosis was absent. Mood and anxiety were well managed.? The patient endorsed a plan to avoid all drugs of abuse and follow up with the aftercare recommendations of the treatment team.? The patient was evaluated and deemed to be absent credible lethality and had achieved the maximum benefit from an inpatient hospitalization, and so was discharged. ? Involuntary Hold Information Hold Status: Legal Status: 96 Hour Hold Date/Time Hold Expires: 03/27/2025 1432 Mental Status Exam MSE Comments: Patient is casually dressed overweight white female who was pleasant and cooperative on interview. Her gait was within normal limits. Her hygiene was fair. There was no evidence of any abnormal involuntary motor movements, tics, or tremors appreciated. Her speech was normal in regards to rate, rhythm, and prosody. Her mood was described as better. Her affect was brighter on discharge. Her thought process was linear, logical, and goal-directed. Her thought content revealed no suicidal ideation. She denied any homicidal ideation. She had endorsed having recurring obsessive thoughts of being contaminated with urges reported to wash hands. She did not engage in any active compulsions during the interview. There was no evidence of delusional thinking. She did not appear to be responding to internal stimuli. Her attention span was fair. Her insight was partial. Her judgment was fair. Her impulse control appeared fair. Her recent and remote memory were grossly intact. Discharge Data Studies Completed and Pending: Laboratory Results WBC 5.21 10^3/uL (4.5 -13.0) 03/23/25 14:46 RBC 4.42 10^6/uL (3.8 5-5.65) 03/23/25 14:46 Hgb 13.80 g/dL (12.4- 14.8) 03/23/25 14:46 Hct 40.4 % (36-47) 03/23/25 14:46 MCV 91.4 fl (85-98) 03/23/25 14:46 MCH 31.2 pg (27-33) 03/23/25 14:46 MCHC 34.2 g/dL (30-55) 03/23/25 14:46 RDW 11.9 % (12.1-15.1 ) L 03/23/25 14:46 Plt Count 239 10^3/cmm (157 -399) 03/23/25 14:46 MPV 10.8 fL (7.4-10.4 ) H 03/23/25 14:46 Neut % (Auto) 63.9 % 03/23/25 14:46 Lymph % (Auto) 26.7 % 03/23/25 14:46 [place] % (Auto) 6.9 % 03/23/25 14:46 Eos % (Auto) 1.5 % 03/23/25 14:46 Baso % (Auto) 0.6 % 03/23/25 14:46 Neut # (Auto) 3.33 10^3/uL (1.8 -8.0) 03/23/25 14:46 Lymph # (Auto) 1.4 10^3/uL (1.5- 6.5) L 03/23/25 14:46 [place] # (Auto) 0.4 10^3/uL (0.2- 0.9) 03/23/25 14:46 Eos # (Auto) 0.1 10^3/uL (0.0- 0.8) 03/23/25 14:46 Baso # (Auto) 0.0 10^3/uL (0.0- 0.1) 03/23/25 14:46 Nucleated RBC % (a uto) 0 % 03/23/25 14:46 Nucleated RBCs # 0.0 /100WBC 03/23/25 14:46 Sodium 138 mmol/L (136-1 45) 03/23/25 14:46 Potassium 4.1 mmol/L (3.5-5 .1) 03/23/25 14:46 Chloride 103 mmol/L (98-10 7) 03/23/25 14:46 Carbon Dioxide 25 mmol/L (22-29) 03/23/25 14:46 Anion Gap 14.1 (5-19) 03/23/25 14:46 BUN 9 mg/dL (6-20) 03/23/25 14:46 Creatinine 0.7 mg/dL (0.5-0. 9) 03/23/25 14:46 GFR Calculation 107.8 mL/min (90- 130) 03/23/25 14:46 Glucose 103 mg/dL (65-115 ) 03/23/25 14:46 Calculated Osmolal ity 285 mOsm/kg (285- 295) 03/23/25 14:46 Calcium 9.3 mg/dL (8.5-10 .5) 03/23/25 14:46 Total Bilirubin 0.6 mg/dL (0.15-1 .2) 03/23/25 14:46 AST 10 U/L (0-32) 03/23/25 14:46 ALT 11 U/L (0-33) 03/23/25 14:46 Alkaline Phosphata se 60 U/L (35-105) 03/23/25 14:46 Total Protein 7.2 g/dL (6.6-8.7 ) 03/23/25 14:46 Albumin 4.4 g/dL (3.5-5.2 ) 03/23/25 14:46 Globulin 2.8 g/dL (1.3-4.6 ) 03/23/25 14:46 HCG, Qual Negative (Negati ve) 03/23/25 16:06 Salicylates < 0.3 mg/dL (3-10 ) L 03/23/25 14:46 Urine Opiates Scre en Negative ng/mL (N egative) 03/23/25 16:06 Acetaminophen < 5.0 ug/mL (10-3 0) L 03/23/25 14:46 Ur Barbiturates Sc reen Negative ng/mL (N egative) 03/23/25 16:06 Ur Phencyclidine S crn Negative ng/mL (N egative) 03/23/25 16:06 Ur Amphetamines Sc reen Negative ng/mL (N egative) 03/23/25 16:06 U Benzodiazepines Scrn Negative ng/mL (N egative) 03/23/25 16:06 Urine Cocaine Scre en Negative ng/mL (N egative) 03/23/25 16:06 U Marijuana (THC) Screen Positive ng/mL (N egative) H 03/23/25 16:06 Ethyl Alcohol < 10 mg/dL (0-10) 03/23/25 14:46 Influenza A (PCR) Negative (Negati ve) 03/23/25 15:18 Influenza Type B ( PCR) Negative (Negati ve) 03/23/25 15:18 RSV (PCR) Negative (Negati ve) 03/23/25 15:18 SARS-CoV-2 (PCR) Negative (Negati ve) 03/23/25 15:18 Vitals: Last Vital Signs Temp 97.8 F 03/27/25 06:00 Pulse 114 H 03/27/25 06:00 Resp 17 03/27/25 06:00 BP 110/70 08/01/25 06:00 Pulse Ox 100 03/27/25 06:00 O2 Del Method Room Air 03/27/25 06:00 Discharge Plan Discharge Patient Disposition: Home Condition: Stable Prescriptions: New sertraline [Zoloft] 50 mg tablet 75 mg PO DAILY Qty: 21 0RF sertraline [Zoloft] 100 mg tablet 100 mg PO DAILY Qty: 30 1RF Rx Instructions: began taking this, after completion of zoloft 50mg 1 1/2 tablet daily. Discontinued fluoxetine 20 mg capsule 20 mg PO DAILY Discharge Order = DC NOW: Discharge Order (Routine); Ordered 03/27/25 Ordered By: Josué Jaquez Referrals: [facility] [Outside, Counselor - Professional] - 04/03/25 8:30 am Referral Note: Initial assessment for services with [facility] 8:30am check- in for a 9am appointment Yasmeen Crenshaw FNP [Primary Care Provider, Nurse Practitioner] - 03/30/25 11:45 am Referral Note: 11:45am check-in for a 12pm appointment Discharge Diet: Usual diet Discharge Activity: Resume usual activity Patient Instructions: Sertraline (By mouth) (Zoloft), Depression (DC), Help Pre vent Suicide (DC), Opioid Safety, Patient Portal & [facility] Instructions Discharge Attestations NPU Time Spent in Discharge Care*: less than 30 min Specific Discharge Activities: Specific discharge activities: educating patient, discussing with pillowcase cutter/social workers/dc planners and evaluating patient/reviewing data Coding Level of Care Code Acute Code for [facility] Fwd Diagnoses MDD (major depressive disorder), recurrent severe, without psychosis F33.2 OCD (obsessive compulsive disorder) F42.9 Suicidal ideation R45.851
[2025-03-27 13:41] VITALS: BP 110/76; PULSE 114; RESP 17; TEMP 36.6; O2SAT 100
[2025-03-27 14:00] VITALS: BP 128/84; PULSE 78; RESP 16; TEMP 36.6; O2SAT 96
== END 2025-03-27 15:55 | disposition home or self-care (01) | DRG 885 ==
LOC: ER 17:06 → NP 17:12
PROVIDERS: Admitting Provider Psychiatry & Neurology Psychiatry; Emergency Provider Emergency Medicine; Visit Provider Psychiatry & Neurology Psychiatry
DX: F33.2 Major depressive disorder, recurrent severe without psychotic features (principal); R45.851 Suicidal ideations; F42.9 Obsessive-compulsive disorder, unspecified; Z81.8 Family history of other mental and behavioral disorders
CPT/HCPCS: 36415; 80053; 80306; 80307; 81025; 85025; 87637; 93005; 97150; 97165; 99285; J9999